=== PATIENT | female | born 1950 | race Caucasian/White ===

== ENCOUNTER 2021-05-12 06:01 | Day surgery (SDC) | payer MEDICARE, SELFPAY ==
[2021-05-04 10:06] VITALS: BMI 31.5
[2021-05-12 06:27] VITALS: BMI 31.3
[2021-05-12 06:31] VITALS: BP 156/67; PULSE 78; RESP 16; TEMP 36.4; O2SAT 99
--- NOTE | 2021-05-12 07:21 | P.CONAN_ITS ---
HPI - Anesthesia Eval Consult details Narrative: 70 yo female patient for Right foot bunionectomy, hammertoe repair 2nd and 5th toes PMFSH Past Medical History Medical History Anxiety COVID-19 vaccine series completed Elevated cholesterol Hx of Ferguson's palsy Hypothyroid Family History Family history of problems with anesthesia: No Surgical History Surgical History History of carpal tunnel surgery of right wrist History of hand surgery Hx of appendectomy Hx of hysterectomy Hx of unilateral oophorectomy History of Problems with Anesthesia: No Social History Social History Patient Tobacco Use Status: Former Tobacco user Quit Date: 1999 Tobacco use type: Cigarette Years Smoked: 20 Smoked in Last 30 Days: No Use of substances other than those prescribed or required for medical reasons: Yes Substance Use Frequency: Monthly Are you DNR?: No Advance Directives: No Advance Directives Information Provided: Yes Meds Allergies Allergy/AdvReac Type Severity Reaction Status Date / Time sulfamethoxazole Allergy Hives Verified 05/12/21 06:24 [From Bactrim] trimethoprim [From Bactrim] Allergy Hives Verified 05/12/21 06:24 Home Medications Medication Instructions Recorded Confirmed Last Taken Type [place] 3 Fish Oil 05/04/21 05/09/21 History atorvastatin 20 mg tablet 20 mg PO BEDTIME 05/04/21 05/04/21 Unknown History cranberry 500 mg capsule 500 mg PO TID 05/04/21 05/04/21 Unknown History gabapentin 100 mg capsule 100 mg PO BEDTIME 05/04/21 05/04/21 Unknown History levothyroxine 88 mcg tablet 88 mcg PO DAILY 05/04/21 05/04/21 05/12/21 04:30 History (Synthroid) lorazepam 0.5 mg tablet 0.5 mg PO DAILY PRN 05/04/21 05/04/21 05/12/21 04:30 History magnesium aspartate HCl 61 mg (615 61 mg PO DAILY 05/04/21 05/04/21 Unknown History mg) tablet,delayed release phkrkfgcvbtb-qirfvgyx-hrntlz tablet 1 tab PO DAILY 05/04/21 05/04/21 Unknown History naproxen sodium 220 mg capsule 220 mg PO BID PRN 05/04/21 05/12/21 05/05/21 History (Aleve) nystatin-emollient combo no.54 g TOPICAL 05/04/21 Unknown History 100,000 unit/gram topical cream Exam Exam Date and Time: May 12, 2021720 Height,Weight and Vital Signs: Height 4 ft 11 in Weight 70.307 kg Last Vital Signs Temp 97.6 F 05/12/21 06:31 Pulse 78 05/12/21 06:31 Resp 16 05/12/21 06:31 BP 156/67 H 05/12/21 06:31 Pulse Ox 99 05/12/21 06:31 Airway Mallampati Class: II TM Dist: >3cm Neck ROM: Full Loose/Missing/Broken Teeth: No Heart: RRR Lungs: CTAB Assessment and Plan Assessment Anesthesia Assessment: Anesthesia Plan Discussed and Chart Reviewed Final Anesthetic Review Family History of Problems with Anesthesia: No History of Problems with Anesthesia: No NPO: Yes ASA Class: II Final Preanesthetic Review: No Changes in Pt Med Stat, Meds/Allgs Chart Reviewed, Consent Obtained/Reviewed and Anes Risks/Benef Reviewed Patient Risk: Low Procedure Risk: Low Assessment/Block/Sedation in SS: Assess/Block/Sedation-SS Anesthetic Plan Anesthetic Plan: GA and MAC: Disposition: Standard PACU
--- NOTE | 2021-05-12 07:36 | MHC.SHP ---
Pre-Procedural Eval Section A Date of Service: 05/12/21 The patient is an INPATIENT: No Changes since office visit: No Cold of Flu in the past 2 weeks, No New Medical Problems, No Changes in Medication and No Patient answered all questions The History & Physical has been completed within 30 days and I have reviewed it.: Yes Section B Chief Complaint: hallux valgus,hammer toes Allergies: Allergies Allergy/AdvReac Type Severity Reaction Status Date / Time sulfamethoxazole Allergy Hives Verified 05/12/21 06:24 [From Bactrim] trimethoprim [From Bactrim] Allergy Hives Verified 05/12/21 06:24 Plan I have reviewed the history and physical and performed a pertinent physical examination on my patient. No changes have occurred unless specified.
[2021-05-12] MEDS: Lactated Ringers 1,000 ML 100 ML IVCONT (07:50)
[2021-05-12 08:38] VITALS: BP 90/45; PULSE 65; RESP 14; TEMP 36.4; O2SAT 99
[2021-05-12 08:43] VITALS: BP 119/68; PULSE 71; RESP 16; O2SAT 100
--- NOTE | 2021-05-12 08:50 | PM.OP ---
Brief Operative Note Date of Service: 05/12/21 Pre-op diagnosis: Hallux valgus right foot, hammer toe right 2nd and 5th toe, skin lesion right 5th toe and soft tissue mass right 5th toe Procedure: Right Sharath bunionectomy, hammer toe repair right 2nd and 5th toe, excision of soft tissue mass and skin lesion right 5th toe Implants: 2 - 15mm Elana asnis screws Surgeon: Nya Vela Anesthesia: MAC and local Was an Chimney Repairer used for this Procedure?: Yes Chimney Repairer: Dc Mojica Estimated blood loss (mL): 5 Tourniquet time (min): 32 Pathology: other Condition: stable Disposition: PACU
--- NOTE | 2021-05-12 10:49 | HP_ITS ---
DATE OF SERVICE: 05/12/2021 PREOPERATIVE DIAGNOSES: Hallux abductovalgus deformity, right foot; hammertoe deformity, right 2nd and 5th toe. PAST MEDICAL HISTORY: Anxiety, cholesterol, sciatica, measles, mumps, chickenpox, transfusions. CURRENT MEDICATIONS: Gabapentin, Aleve, cranberry juice, fish oil, multivitamin, atorvastatin, and Synthroid. PAST SURGICAL HISTORY: Hysterectomy, thyroid surgery, carpal tunnel surgery, trigger finger surgery. FAMILY HISTORY: Hypertension, cancer, arthritis. SOCIAL HISTORY: The patient is a former smoker, current nonsmoker. Denies any illicit drug use. Relates occasional alcohol use. She is retired, with no children. The patient does say she vapes. ALLERGIES: TO BACTRIM, WHICH CAUSES ITCHING AND A RASH. HOSPITALIZATIONS: Denies. REVIEW OF SYSTEMS: Within normal limits. HISTORY OF PRESENT ILLNESS: This is a 70-year-old female who presents with aching and tenderness to her right great toe joint that has been present for several years, it has been gradually getting progressively worse as well as tenderness in her second and fifth toes of her right foot. PHYSICAL EXAMINATION: GENERAL: Reveals a pleasant, alert, well-nourished, well-developed, well-hydrated individual, who demonstrates proper attention to body habitus, in no acute distress. NEUROLOGICAL EXAM: Reveals intact sensorium. Pain sensation is normal. Vibratory sensation is intact. Pinprick sensation is normal. Denies any anesthesias, paresthesias, or burning bilaterally. VASCULAR EXAM: DP and PT pulses are 2/4 bilaterally. Capillary refill is immediate to all digits. SKIN: Temperature, elasticity is normal, warm to cool, proximal to distal. Hair growth is absent. Pigmentation is normal. There is no edema. DERMATOLOGICAL EXAM: Reveals normal texture, elasticity, and turgor. There are no masses. The interspaces are clear. ORTHOPEDIC EXAM: Muscle strength is 5/5 in a symmetrical fashion. There is a medially prominent 1st metatarsophalangeal joint of the right foot. Lateral tracking of the 1st MPJ is incompletely reducible with pain on palpation; however, range of motion is full and without pain or crepitus. Toes reveal digital contractures of the PIP joint of T6 and T9 which is the right second and fifth toes, incompletely reducible to weightbearing and to push-up test. DIAGNOSTIC STUDIES: X-rays are reviewed, reveal normal bone and soft tissue density for patient's age and sex. It shows asymmetrical joint-space narrowing of the DIPJ and PIP joints. Clinical findings of hammertoe deformity, 5th digit calcification dorsal to DIP joint noted. The bunion, there is increased first intermetatarsal and hallux abductus angle consistent with bunion deformity, hypertrophy of the dorsal and medial first metatarsal head without subchondral cyst, increased first IM angle, sesamoid position is about #5. There is hypertrophy of the dorsal medial 1st metatarsal head without cyst and there is an exostosis of the dorsal aspect of the 1st metatarsal head. PLAN: Several types of bunion surgeries were discussed in detail with the patient including but not limited to, modified Pruett bunionectomy, Zia or Sharath bunionectomy, shaft versus base wedge osteotomy and Lapidus joint fusion. We discussed the risks of surgery as well as not having surgery, potential surgical complications which are included but not limited to pain, swelling, bleeding, scarring, numbness, infection, delayed or nonhealing, floppy, unstable shortened toe, recurrence, failure of the procedure, over-correction leading to downward or plantar flexed or upper position of toe, need for further surgery, as well as possibility of loss of toe, foot, life, or limb. Discussed use of local and IV anesthesia and usual postoperative course for healing. No guarantees were given. The patient verbally indicated full understanding of above conversation and all questions were answered to their satisfaction. We decided on performing a Sharath bunionectomy as well as hammertoe repair to the right 2nd and 5th toes based on the patient's complaints, medical and social history, physical exam, x-ray analysis. The patient would like to proceed with surgical treatment. She will obtain preoperative labs as well as medical clearance for surgery and anesthesia. She is made aware to stop any and all blood thinners including [id number] aspirin and fish oil at least 1 week prior to surgery and made aware that driving is not allowed during a portion of postoperative period. The patient also not to utilize any smoking tobacco products including vaping at least 3 months prior to surgery and for 3 months postoperatively to facilitate bone healing. Narcotic prescription medication was given. The patient can half fill the prescription and discussed she should use lowest dosage for shortest duration of time. The patient will be partial weightbearing to the right foot with surgical shoe or cast boot and crutches. The patient will follow up in my office for all postoperative followup care. Nya Vela DPM LP/KATHLEEN / [id number] MTDD
--- NOTE | 2021-05-17 11:52 | OP_ITS ---
SURGEON: Nya Vela DPM PREOPERATIVE DIAGNOSES: 1. Hallux abductovalgus deformity, right foot. 2. Hammertoe deformity, right second toe. 3. Hammertoe deformity, right fifth toe. 4. Skin disease, right fifth toe. 5. Soft tissue mass, right fifth toe. POSTOPERATIVE DIAGNOSES: 1. Hallux abductovalgus deformity, right foot. 2. Hammertoe deformity, right second toe. 3. Hammertoe deformity, right fifth toe. 4. Skin disease, right fifth toe. 5. Soft tissue mass, right fifth toe. PROCEDURES PERFORMED: 1. Sharath bunionectomy, right foot. 2. Hammertoe correction, right second toe. 3. Hammertoe correction, right fifth toe. 4. Excision of skin lesion, right fifth toe. 5. Excision of soft tissue mass, right fifth toe. ESTIMATED BLOOD LOSS: Less than 5 mL. COMPLICATIONS: None. ANESTHESIA: Monitored anesthetic care with local consisting preoperatively of 18 mL of 0.5% Marcaine plain and 2% lidocaine plain. A postoperative injection of 5 mL of 0.5% Marcaine plain and 1 mL of dexamethasone. ASSISTANTS: Dc Mojica DPM. SPECIMENS: Bone and soft tissue right foot HEMOSTASIS: Pneumatic ankle tourniquet set at 215 mmHg for 34 minutes. INDICATIONS FOR SURGERY: The patient had painful bunion deformity to the right foot with hammertoes of the second and fifth toe with a mass noted to the right 5th toe and disease skin to the right 5th digit. The above-mentioned surgery was discussed in detail with the patient including risks, benefits, and possible complications. No guarantees were given and written and oral informed consent was obtained. DESCRIPTION OF PROCEDURE: The patient was brought into the operating room, placed on the operating table in the supine position. Prior to the start of anesthesia, 2 g of cefazolin was administered as a prophylactic preoperative antibiotic. The right foot was anesthetized with the above-mentioned local anesthetic and was scrubbed, prepped, and draped in a sterile manner. The right foot was exsanguinated and the pneumatic ankle tourniquet inflated Attention was directed to the first metatarsophalangeal joint, where an incision was made. The incision was deepened down through subcutaneous tissue with great care being taken to retract vital, neuro, and vascular structures and all bleeders were cauterized as necessary. A medial capsulotomy was made, medial and parallel to the extensor tendons and then the soft tissues were freed about the head of the first metatarsal. Using a sagittal saw, the medial eminence was resected and passed from the operative site. Attention was then directed via the same incision to the first interspace, where the deep transverse intermetatarsal ligament was transected the fibular sesamoidal ligament and the adductor tendon were transected allowing a lateral release in the first metatarsal to drift into a more corrected position. Attention was directed back medial to the first metatarsal head, where a guide pin was placed for the apex of the osteotomy and then 2 wings were cut dorsally proximally and plantarly proximally with a long dorsal arm. The osteotomy was completed and the capital fragment was translocated laterally and impacted upon the first metatarsal shaft. Two [employer] screws were then inserted, 50 mm in length, across the osteotomy site. All guidewires were removed and there was stable and compression of the osteotomy. The remaining medial eminence was resected and passed from the operative site. The wound was then irrigated with copious amounts of normal sterile saline. The capsular structures reapproximated with 3-0 Vicryl in a continuous running fashion. The skin was reapproximated with 4-0 Monocryl in a continuous running fashion. Attention was directed to the second toe, where hammertoe procedure was performed. The incision was made overlying the PIP joint. Great care being taken to retract vital, neuro, and vascular structures and all bleeders were cauterized as necessary. A transverse tenotomy was made at the level of the PIP joint. Then, the each collateral ligaments were transected allowing the head of the proximal phalanx to drift into the incision. The head of the proximal phalanx was then resected using power instrumentation. The wound was irrigated with normal sterile saline. The tendon was reapproximated with 3-0 Vicryl in an interrupted suture technique, and the skin was reapproximated with 4-0 nylon in a continuous running fashion. Attention was directed to the fifth toe. There was noted significant deformity and skin disease to the fifth toe. Two semi-elliptical incisions were made excising the skin disease 2.8 cm x 0.8 cm was removed and passed from the operative site and sent for pathology. Upon incision, there was noted to be a chalky soft tisse mass which was excised in total and passed from the operative site and sent for pathology. The head of the proximal phalanx at the level of the DIP joint was noted to be a regularly-shaped. This was resected in total and passed from the operative site and sent for pathology. The wound was irrigated with normal sterile saline. The tendon was reapproximated with 3-0 Vicryl in an interrupted suture technique and the skin was reapproximated with 4-0 nylon in a continuous running fashion. The bunion deformity was then dressed with the ZipLine. The other hammertoe deformity surgery sites were dressed with Xeroform or Adaptic. The foot was then dressed with Betadine soaked gauze, 4x4s, fluffs, Kerlix, cast padding, and an Jacob bandage. A postoperative injection of 0.5% Marcaine plain and 1 mL of dexamethasone was administered prior to the application of dressings. The pneumatic ankle tourniquet was deflated. Prompt capillary refill was noted to all 5 digits. The patient tolerated procedure and anesthesia well. She was transferred to the recovery room with vital signs stable and vascular status at preoperative levels. Following a period of postoperative recovery, the patient will be discharged home with postoperative instructions. She is to be partial weightbearing to the right foot with a surgical shoe and crutches or a walker as needed and to follow up in my office for all postoperative followup care. Nya Vela DPM LP/KATHLEEN / [id number] CHRISTIAN
== END 2021-05-12 09:44 | disposition home or self-care (01) ==
PROVIDERS: PCP Registered Nurse; Visit Provider Podiatrist
PROC: (CPT 28292; principal; 2021-05-12 07:30)
PROC: (CPT 28285; 2021-05-12 07:30)
DX: M20.11 Hallux valgus (acquired), right foot (principal); M21.611 Bunion of right foot; M20.41 Other hammer toe(s) (acquired), right foot; M79.671 Pain in right foot; E03.9 Hypothyroidism, unspecified; E78.2 Mixed hyperlipidemia; Z79.899 Other long term (current) drug therapy; Z79.1 Long term (current) use of non-steroidal anti-inflammatories (NSAID)
CPT/HCPCS: 28298; 28285 ×2; 88304; 88305; 88311; C1713; J0690; J1100; J2370; J3010